=== PATIENT | male | born 1995 | race Caucasian/White ===

== ENCOUNTER 2019-09-29 23:07 | Day surgery (SDC) | payer BC, OTHER, SELFPAY ==
[2019-09-29 22:00] VITALS: BP 140/86
[~2019-09-29 23:07] MED LIST: DARV100T; KETOROLAC 30 MG/ML VIAL (J1885) IV PRN; MORPHINE 2 MG/ML 1ML VIAL (J2270) IV PRN; ONDANSETRON 4MG/2ML VIAL (J2405) IV PRN
[2019-09-29] MEDS ORDERED: LIDOCAINE 2% INJ 100 MG/5 ML SDV (FOR ANES.) As Ordered ONE (23:37)
[2019-09-29] MEDS ORDERED: propofoL 200 MG/20 ML VIAL As Ordered ONE (23:37)
[2019-09-29] MEDS ORDERED: ROCURONIUM BROMIDE 50 MG/5 ML VIAL As Ordered ONE (23:37)
[2019-09-29] MEDS ORDERED: dexameTHASONE 4 MG/ML 1ML VIAL (J1100 PER 1MG) As Ordered ONE (23:38)
[2019-09-29] MEDS ORDERED: MIDAZOLAM INJ 2 MG/2 ML VIAL (J2250) As Ordered ONE (23:38)
[2019-09-29] MEDS ORDERED: fentaNYL 100 MCG/2 ML INJECTION (J3010) As Ordered ONE (23:38)
[2019-09-29] MEDS ORDERED: ONDANSETRON 4MG/2ML VIAL (J2405) As Ordered ONE (23:39)
[2019-09-29] MEDS: LR 1,000 ML IV SCH (23:39)
[2019-09-30] VITALS (9 sets, daily range): BP systolic 138–162; BP diastolic 84–99
[2019-09-30] MEDS ORDERED: BUPIVACAINE HCL 0.25% 30ML VIAL As Ordered ONE (03:11)
[2019-09-30] MEDS ORDERED: fentaNYL 100 MCG/2 ML INJECTION (J3010) As Ordered ONE (03:44)
[2019-09-30] MEDS ORDERED: ACETAMINOPHEN 1000MG 100ML IV BTL (OFIRMEV) (J0131 PER 10MG) As Ordered ONE (03:51)
[2019-09-30] MEDS ORDERED: cefoTEtan INJ 1GM VIAL (S0074 PER 500MG) As Ordered ONE (03:53)
[2019-09-30] MEDS ORDERED: propofoL 200 MG/20 ML VIAL As Ordered ONE (04:07)
[2019-09-30] MEDS ORDERED: ROCURONIUM BROMIDE 50 MG/5 ML VIAL As Ordered ONE (04:11)
[2019-09-30] MEDS ORDERED: SUGAMMADEX SODIUM 500 MG/5 ML VIAL (BRIDION) As Ordered ONE (04:44)
[2019-09-30] MEDS ORDERED: oxyCODONE 5MG TAB PO PRN (05:45)
[2019-09-30] MEDS ORDERED: ONDANSETRON 4MG/2ML VIAL (J2405) IV PRN (05:45)
[2019-09-30] MEDS ORDERED: fentaNYL 100 MCG/2 ML INJECTION (J3010) IV PRN (05:45)
[2019-09-30] MEDS ORDERED: LR 1,000 ML IV SCH (05:45)
[2019-09-30] MEDS ORDERED: ACETAMINOPHEN 500 MG TAB PO PRN (06:00)
[2019-09-30] MEDS ORDERED: oxyCODONE 5MG TAB As Ordered ONE (06:11)
[2019-09-30] MEDS: LR 1,000 ML IV SCH (06:48)
[2019-09-30] MEDS: NORCO, ANEXSIA 5/325MG TABLET (HYDROcodone/ACETAMINOPHEN) PO PRN ×2 (08:29→13:07)
[2019-09-30] MEDS ORDERED: HYDR-3715 PO (12:57)
--- NOTE | 2019-10-01 07:25 | IPN ---
DATE: 09/30/2019 HISTORY: The patient underwent a laparoscopic appendectomy for acute appendicitis at approximately 4 o'clock this morning until about 5:30 this morning. He has done very well since surgery and has been advanced through clear liquids to a regular diet which he has tolerated. He has been up to ambulate and has remained afebrile. Vital signs so show that he has been afebrile since surgery. His pulse has generally been in the 80s to low 90s. His blood pressure has been up a little bit above normal. His room air oxygen saturation is fine. Intake and output show that he has taken 900 mL orally today with an excellent urine output of 1200 mL. He has voided without difficulty. PHYSICAL EXAMINATION: Reveals a pleasant young man lying quietly on the hospital bed. His heart exam shows a regular rhythm. The lungs are clear. The abdomen is mildly obese. He does have bowel sounds present. His dressings are dry and intact and he has no undue abdominal tenderness. IMPRESSION: The patient is doing very well now approximately 6 hours postop from his laparoscopic appendectomy for acute appendicitis. PLAN: The patient will be discharged home. He can take a diet as tolerated. He was advised that he can shower 24 hours after the surgery. He should leave the Steri-Strips in place until they come off on their own. I have asked him to follow up with me in a week to 10 days in the office. I advised him that he should avoid strenuous activity or lifting greater than approximately 25 pounds for 2 weeks. I advised him to try getting by with Tylenol or ibuprofen for mild pain, but I will send in a prescription for 10 [place] tablets that he can use as needed over the next couple of days. He should contact the office for any problems.
--- NOTE | 2019-10-01 08:14 | RO ---
DATE OF PROCEDURE: 09/30/2019 PREOPERATIVE DIAGNOSIS: Acute appendicitis. POSTOPERATIVE DIAGNOSIS: Acute appendicitis. PROCEDURE PERFORMED: Laparoscopic appendectomy. SURGEON: Dr. Ramachandran ANESTHESIA: General. INDICATIONS FOR THE PROCEDURE: Patient is a 23-year-old man who noted the onset of some upper abdominal pain early in the day on the 28 of September. During the course of the day his discomfort increased and became more localized in the lateral aspect of the abdomen on the right slightly below the level of the umbilicus. He presented at [facility] where he was found to have a slightly elevated white blood cell count and a CT scan suggested a distended appendix. He was transferred to [facility] to my care and is now for a laparoscopic appendectomy for acute appendicitis. OPERATIVE PROCEDURE: The patient was brought to the operating room and placed on the table in a supine position. He was placed under general endotracheal anesthesia. The patient's abdomen was prepped and draped in a sterile fashion. 0.25% Marcaine was infiltrated at each of the trocar sites as needed. A short supraumbilical midline incision was made and deepened to the fascia. A Veress needle was inserted and after positive hanging drop test the abdomen was insufflated with carbon dioxide gas. The fascia at the needle insertion site was partially incised along the midline and a 12 mm port was placed. The laparoscopic was inserted. Initial examination showed no obvious acute inflammatory changes. The liver and gallbladder seemed normal as did the visualized portions of the small and large bowel. The patient was rolled to the left and placed into a slight Trendelenburg position. The tip of the appendix was now identified at approximately the level of the umbilicus in the paracolic gutter. The appendix was clearly hyperemic and distended. Two 5 mm ports were placed in the left lower quadrant. Graspers were inserted. Some fibrofatty tissue at the terminal ileum was partially adherent to the appendix and the mesoappendix and these attachments were divided using the hook cautery. The appendix was grasped and elevated and the mesoappendix was carefully divided using the hook cautery with care to thoroughly cauterized the vascular structures. The appendix was freed down to its juncture with the cecum. The appendix was stapled and excised using a 45 mm endoscopic linear cutter stapler with a blue load. The appendix was taken right at its juncture with the cecum. The appendix was placed in an Endopouch. The operative area was irrigated with saline and a small bleeding point along the staple line was controlled with judicious use of the cautery. Final inspection revealed no bleeding and an excellent staple line. The irrigation was suctioned from the abdomen as thoroughly as possible. The patient was returned to a flat position and the abdomen was deflated and the trocars were all removed. The appendix was recovered through the supraumbilical site. The fascia at the supraumbilical site was closed with interrupted simple sutures of 2-0 Vicryl. The skin incisions were all closed with buried 4-0 Vicryl and Steri-Strips. Light dressings were applied. The patient tolerated the procedure well without apparent complication. He was awakened in the operating room, extubated and moved to the recovery room in stable condition.
== END 2019-09-30 13:45 | disposition home or self-care (01) ==
LOC: M SDC 23:07 → M MSPAV 23:20 → M SDC 09-30 13:45
PROVIDERS: ATTEND Surgery
DX: K35.890 Other acute appendicitis without perforation or gangrene (principal); Z88.8 Allergy status to other drugs, medicaments and biological substances
CPT/HCPCS: 44970; 88304; J0131; J1100; J2250; J2405; J3010